=== PATIENT | female | born 2005 | race Caucasian/White ===

== ENCOUNTER 2023-05-03 17:31 | Emergency (ER) | payer SELFPAY ==
--- NOTE | 2023-05-03 17:49 | PC.NURSE ---
Pt stated she was leaving to be seen by her friends mom who is an ED RN at [id number].
== END 2023-05-03 18:16 | disposition left against medical advice (07) ==
LOC: ANHED 18:01
DX: Z53.21 Procedure and treatment not carried out due to patient leaving prior to being seen by health care provider (principal)
CPT/HCPCS: 99199

== ENCOUNTER 2023-09-02 19:03 | Emergency (ER) | payer OTHER, SELFPAY ==
[2023-09-02 19:07] VITALS: BP 114/75; PULSE 78; RESP 16; TEMP 36.4; O2SAT 100
[2023-09-02 19:09] VITALS: BP 114/75; PULSE 78; RESP 16; TEMP 36.4; O2SAT 100
--- NOTE | 2023-09-02 19:10 | ED.GENADULT ---
HPI - General Adult General Chief complaint: Upper Respiratory Infection Stated complaint: Sore Throat Source: patient, RN notes reviewed and old records reviewed Mode of arrival: ambulatory Limitations: no limitations History of Present Illness HPI narrative: 18-year-old female presents to [facility] with complaint sore throat, myalgia, headache, fatigue, chills this started 2 days ago. Patient taking ibuprofen for symptoms. Patient denies chest pain, shortness of breath, dizziness, weakness Related Data Home Medications Medication Instructions Recorded Confirmed venlafaxine 37.5 mg 37.5 mg PO DAILY 09/02/23 09/02/23 capsule,extended release 24 hr Allergies Allergy/AdvReac Type Severity Reaction Status Date / Time No Known Allergies Allergy Verified 09/02/23 19:13 Review of Systems Constitutional: Constitutional: Reports no additional constitutional complaints, Reports body ache(s), Denies chills, Reports fatigue, Denies fever(s) and Denies headache(s) Eyes: Eyes: Reports no additional eye complaints and Denies blurry vision ENT: Reports system reviewed and no additional complaints, except as documented, Denies vertigo, Denies dizziness, Denies ear discharge, Denies otalgia, Denies facial pain, Denies headache(s), Denies nasal congestion, Denies nasal discharge, Denies sinus pain, Denies sinus pressure and Reports sore throat Cardiovascular: Cardiovascular: Reports no additional cardiovascular complaints, Denies chest pain, Denies chest pain at rest, Denies rapid heart rate and Denies dyspnea Respiratory: Respiratory: Reports no additional respiratory complaints, Denies chest congestion, Denies cough, Denies pain on inspiration, Denies pain with cough and Denies dyspnea Gastrointestinal: Gastrointestinal: Denies abdominal pain, Denies diarrhea, Denies nausea and Denies vomiting Integumentary/Breasts: Skin/Breast: Denies rash Neurologic: Reports system reviewed and no additional complaints, except as documented, Denies vertigo, Denies dizziness and Denies headache(s) Endocrine: Endocrine: Denies fatigue PMFSH Comments At the time of my signature, I reviewed and agree with the nursing past medical, surgical, social, and family history. There is no relevant family history pertinent to the patient complaint. Exam Const: General: cooperative, healthy appearing, no acute distress and well nourished Nutritional Appearance: well nourished Orientation/consciousness: patient oriented x3 Limitations: no limitations HENMT: Head: normal to inspection and normocephalic Ears: external ears normal, TM's normal bilaterally, EAC's normal and mastoids normal Face/Nose/Sinus: normal facial exam Face and sinus: normal facial exam Mouth: Yes Normal oral and palatal mucosa present, Yes oropharynx normal and Yes moist mucous membranes Throat: posterior oropharynx normal, tonsils normal, uvula midline and no uvular edema Eyes: General: appearance normal, both eyes and all related structures Sclera: sclerae normal Pupils: Equal, round and reactive pupils present Resp: Effort & Inspection: normal respiratory effort, able to speak in complete sentences, no audible wheezes, no cough, no respiratory distress and no retractions Auscultation: clear to auscultation bilaterally, no crackles, no rales, no rhonchi and no wheezes Cardio: Rate: regular rate Rhythm: regular rhythm Skin: General skin exam: normal color and no rashes or lesions noted Neuro: General: patient oriented x3 Cranial nerves: Yes Equal, round and reactive pupils present Psych: Appearance: grossly normal Mental Status: mental status grossly normal Speech and movement: Normal speech and movement present Affect: normal affect Course Course Emergency Course: Patient is aware of diagnosis, understands and agrees to treatment plan.? Anticipatory guidance given.? Patient agrees to follow-up as directed and is aware of reasons to seek care at the emergency departm
== END 2023-09-02 19:24 | disposition home or self-care (01) ==
PROVIDERS: Emergency Provider Registered Nurse
DX: B34.9 Viral infection, unspecified (principal); Z20.822 Contact with and (suspected) exposure to COVID-19
CPT/HCPCS: 87081; 87426; 87804; 87880; 99213; G0463

== ENCOUNTER 2023-11-10 13:12 | Emergency (ER) | payer OTHER, SELFPAY ==
[2023-11-10 13:23] VITALS: BP 114/76; PULSE 82; RESP 16; TEMP 36.6; O2SAT 100
--- NOTE | 2023-11-10 13:33 | ED.GENADULT ---
HPI - General Adult General Chief complaint: Urogenital-Female Stated complaint: Yeast Infection Time Seen by Provider: 11/10/23 13:33 Source: patient Mode of arrival: ambulatory Limitations: no limitations History of Present Illness HPI narrative: 18-year-old female patient presents to the [facility] with complaints of vaginal discharge and vaginal itching for the past 5 days. Patient states she has had yeast infections before is and symptoms feel very similar. Patient states she is sexually active with only 1 partner at this time denies any concerns for STDs. Patient states she does have an IUD last period was over 2 months ago but has been having some breakthrough bleeding. Denies fevers, body aches or chills. Denies using any [id number] medications for yeast infection symptoms. Related Data Home Medications Medication Instructions Recorded Confirmed venlafaxine 37.5 mg 37.5 mg PO DAILY 09/02/23 11/10/23 capsule,extended release 24 hr Allergies Allergy/AdvReac Type Severity Reaction Status Date / Time No Known Allergies Allergy Verified 11/10/23 13:37 Review of Systems Review of Systems: CONSTITUTIONAL: Denies fever, chills, or sweats. EYES: Denies visual changes, redness, or discharge. ENT: Denies rhinorrhea, congestion, sore throat, or otalgia. CARDIOVASCULAR: Denies chest pain, palpitations, or edema. RESPIRATORY: Denies cough or dyspnea. GASTROINTESTINAL: Denies abdominal pain, nausea, vomiting, or diarrhea. GENITOURINARY: Denies dysuria or hematuria. Positive vaginal discharge, itchiness x5 days SKIN: Denies rash or itching. MUSCULOSKELETAL: Denies back pain, joint pain, or myalgia. NEUROLOGIC: Denies headache, numbness, or weakness. PSYCHIATRIC: Denies anxiety or depression. PMFSH Comments At the time of my signature I agree with nursing past medical history, surgical, social, and family history. There is no relevant family history pertinent to the presenting complaint. Exam Narrative: GENERAL: Well-appearing, well-nourished, and in no acute distress. HEAD: Normocephalic, atraumatic. EYES: PERRLA and EOMI. ENT: Nares clear, no rhinorrhea or epistaxis. Mucous membranes moist. NECK: Supple. No lymphadenopathy CHEST: Clear to auscultation. No respiratory distress. HEART: Regular rate and rhythm. No murmur heard. Normal peripheral pulses. ABDOMEN: Soft, nontender, nondistended, normal active bowel sounds. : Normal external female genitalia. OS is closed. No adnexal fullness or TTP. No CVA tenderness to percussion. Patient has some yellowish thick discharge noted on vaginal exam. Samples were taken and sent for general culture and BV testing. EXTREMITIES: Normal range of motion. No edema. SKIN: Warm, dry, no rash. NEURO: No focal deficits. Alert and oriented x3. Course Course Level of Care: Express Care Visit Vital Signs Vital signs: Vital Signs Temperature 36.6 C 11/10/23 13:23 Pulse Rate 82 11/10/23 13:23 Respiratory Rate 16 11/10/23 13:23 Blood Pressure 114/76 11/10/23 13:23 Pulse Oximetry 100 11/10/23 13:23 Temperature 36.6 C 11/10/23 13:23 Pulse Rate 82 11/10/23 13:23 Respiratory Rate 16 11/10/23 13:23 Blood Pressure 114/76 11/10/23 13:23 Pulse Oximetry 100 11/10/23 13:23 Vital signs reviewed. Medical Decision Making MDM Narrative Medical decision making narrative: Patient denies wanting testing for STDs today. Patient will provide a urine specimen we will test her for and dip her urine. We will also do a pelvic exam to assess the vaginal discharge and sent off for testing most likely for BV. Patient verbalized understanding. Differential Diagnosis Differential Diagnosis: differential diagnosis: Gonorrhea, chlamydia, Trichomonas, bacterial vaginosis, herpes, HIV, yeast infection, urinary tract infection. Vital Signs Vital Signs: Vital Signs Temperature 36.6 C 11/10/23 13:23 Pulse Rate 82
[2023-11-13 00:53] LABS: Bacterial Vaginosis POSITIVE (NEGATIVE)
== END 2023-11-10 14:06 | disposition home or self-care (01) ==
PROVIDERS: Emergency Provider Nurse Practitioner Family
DX: B37.31 Acute candidiasis of vulva and vagina (principal)
CPT/HCPCS: 81003; 81025; 81513; 87070; 99214; G0463

== ENCOUNTER 2024-04-23 13:06 | Emergency (ER) | payer OTHER, SELFPAY ==
[2024-04-23 13:28] VITALS: BP 115/75; PULSE 68; RESP 16; TEMP 36.2; O2SAT 98
--- NOTE | 2024-04-23 13:47 | ED.FEMALEGU ---
HPI - Female Genitourinary General Chief complaint: Urogenital-Female Stated complaint: std testing Time Seen by Provider: 04/23/24 13:48 Source: patient, RN notes reviewed and old records reviewed Mode of arrival: ambulatory Limitations: no limitations History of Present Illness HPI Narrative: 18-year-old female presents to the [facility] requesting STD testing. States that she just got a text message stating that a person she was with approximately 6 weeks ago recently tested positive for chlamydia and that everyone they had contact with these to be tested Patient's last menstrual period 3 months ago Patient denies any symptoms. No abdominal pain, vaginal discharge, itching or irritation Related Data Home Medications Medication Instructions Recorded Confirmed venlafaxine 37.5 mg 37.5 mg PO DAILY 09/02/23 04/23/24 capsule,extended release 24 hr Allergies Allergy/AdvReac Type Severity Reaction Status Date / Time No Known Allergies Allergy Verified 04/23/24 13:40 Review of Systems Review of Systems: All systems reviewed & are unremarkable except as noted in HPI and below Constitutional: Constitutional: Reports no additional constitutional complaints Eyes: Eyes: Reports no additional eye complaints ENT: Reports system reviewed and no additional complaints, except as documented Cardiovascular: Cardiovascular: Reports no additional cardiovascular complaints, Denies chest pain and Denies dyspnea Respiratory: Respiratory: Reports no additional respiratory complaints, Denies chest congestion, Denies cough and Denies dyspnea Gastrointestinal: Gastrointestinal: Reports no additional gastrointestinal complaints, Denies abdominal pain, Denies nausea and Denies vomiting Musculoskeletal: Musculoskeletal: Reports no additional musculoskeletal complaints Integumentary/Breasts: Skin/Breast: Reports system reviewed and no additional complaints, except as docu Neurologic: Reports system reviewed and no additional complaints, except as documented Psychiatric: Psychiatric: Reports no additional psychiatric complaints Allergic/Immunologic: Allergic/Immunologic: Reports no additional allergic/immunologic complaints PMFSH Comments At the time of my signature, I reviewed and agree with the nursing past medical, surgical, social, and family history. There is no relevant family history pertinent to the patient complaint. Exam Const: General: cooperative, healthy appearing, comfortable, no acute distress, well developed, alert and well nourished Nutritional Appearance: well nourished Orientation/consciousness: patient oriented x3 Limitations: no limitations HENMT: Head: normal to inspection Ears: hearing grossly normal bilaterally and external ears normal Face/Nose/Sinus: Normal external nose present, normal facial exam and face symmetric Face and sinus: normal facial exam and face symmetric Eyes: General: appearance normal, both eyes and all related structures Alignment and Position: alignment normal Periorbital: periorbital findings normal Neck: Neck: normal visual inspection, full ROM, no lymphadenopathy and no meningeal signs Chest: Chest palpation & inspection: normal inspection of the chest Resp: Effort & Inspection: normal respiratory effort and able to speak in complete sentences Cardio: Rate: regular rate : Other: Requesting urine test, declined pelvic will follow-up with health plan specialist if needed Skin: General skin exam: normal color and no rashes or lesions noted Lesions: no lesions Rashes: no rashes Trauma: no lacerations or abrasions Wounds: no wounds Neuro: General: patient oriented x3, gait normal, tone normal, moves all extremities and no meningeal signs Cognition (Neuro): normal cognition Speech: normal speech Gait exam (Neuro): Normal gait present Extrem: General: normal to inspection, full ROM, capillary refill normal and normal gait Psych: Appearance: grossly normal and well kempt Mental Sta
[2024-04-23 15:58] LABS: BEDSIDEPREGUCG Negative (Negative)
[2024-04-23 17:49] LABS: Trichomonas Vag PCR NOT DETECTED (NOT DETECTE)
[2024-04-23 18:15] LABS: Chlamydia trachomatis NOT DETECTED (NOT DETECTE); Neisseria gonorrhoeae PCR NOT DETECTED (NOT DETECTE)
== END 2024-04-23 14:01 | disposition home or self-care (01) ==
PROVIDERS: Emergency Provider Nurse Practitioner
DX: Z20.2 Contact with and (suspected) exposure to infections with a predominantly sexual mode of transmission (principal)
CPT/HCPCS: 81025; 87491; 87591; 87661; 99212; 99213; G0463

== ENCOUNTER 2024-08-13 11:25 | Emergency (ER) | payer OTHER, SELFPAY ==
--- NOTE | 2024-08-13 11:39 | ED.URI ---
HPI - URI/Sore Throat General Chief Complaint: Upper Respiratory Infection Stated Complaint: SORE THROAT Time Seen by Provider: 08/13/24 11:55 Source: patient Mode of arrival: ambulatory Limitations: no limitations History of Present Illness HPI Narrative: Elham is a 19-year-old female patient presenting to the clinic today with complaints of a sore throat, runny nose, cough, and congestion x2 days. She denies any known fever, chills, or body aches. No chest pain or shortness of breath MD elicited complaint: cough, sore throat and nasal congestion Related Data Home Medications ?Medication ?Instructions ?Recorded ?Confirmed ?Last Taken ?Type venlafaxine 37.5 mg 37.5 mg PO DAILY 09/02/23 04/23/24 Unknown History capsule,extended release 24 hr norgestimate 0.25 mg-ethinyl tablet 08/13/24 Unknown History estradiol 35 mcg tablet (Estarylla) Allergies Allergy/AdvReac Type Severity Reaction Status Date / Time No Known Allergies Allergy Verified 08/13/24 11:54 Review of Systems Review of Systems: Pertinent positives per HPI. Patient denies any fever, chills, rash, headache, visual changes, dizziness, shortness of breath, chest pain, palpitations, nausea, vomiting, diarrhea, constipation, abdominal pain, or any urinary issues. PMFSH Comments At the time of my signature, I reviewed and agree with the nursing past medical, surgical, social, and family history. There is no relevant family history pertinent to the patient complaint. Exam Narrative: General: Well-developed, well nourished, in no apparent distress Head: Normocephalic, atraumatic Eyes: Pupils equally round and reactive to light bilaterally, EOM intact, sclera and conjunctive clear, no discharge, lids normal Ears: TMs intact and congested, ear canals clear, no drainage, grossly hearing normal. Nose: Nares patent, clear nasal discharge, no inflammation, no sinus tenderness. Mouth: Oral pharynx red without lesions or masses, good dentition, MMM. Postnasal drip Neck: Supple, trachea midline, no enlargement of anterior or posterior cervical nodes, no thyroid masses or goiter palpable. Cardio: Regular rate and rhythm, s1 and s2 normal, no murmur appreciated. Resp: Clear to auscultation bilaterally, no rhonchi, rales, wheezing or rubs Course Course Emergency Course: Portions of this record may have been created with voice recognition software. Level of Care: Express Care Visit Vital Signs Vital signs: Vital Signs Temperature 37.1 C 08/13/24 11:46 Pulse Rate 115 H 08/13/24 11:46 Respiratory Rate 16 08/13/24 11:46 Blood Pressure 116/65 08/13/24 11:46 Pulse Oximetry 100 08/13/24 11:46 Temperature 37.1 C 08/13/24 11:46 Pulse Rate 115 H 08/13/24 11:46 Respiratory Rate 16 08/13/24 11:46 Blood Pressure 116/65 08/13/24 11:46 Pulse Oximetry 100 08/13/24 11:46 Vital signs reviewed MDM - URI/Sore Throat MDM Narrative Medical decision making narrative: At the time of visit patient is resting comfortably on the exam table. Patient appears to be nontoxic. Labs: COVID, influenza, and strep test were performed. COVID and strep test were negative. We will send strep for culture. Influenza test was positive for influenza A. Plan: Patient is positive for influenza A. Tamiflu prescription was sent to the pharmacy. Risk and benefits of this medication was reviewed and patient would liked to have this medication. Supportive measures were discussed with the patient and they voiced understanding discharge instructions and agrees to treatment plan. Return precautions reviewed Differential Diagnosis Differential diagnosis: Likely upper respiratory infection, otitis media, sinusitis, viral infection, bronchitis, influenza, pharyngitis and other (COVID) Lab Data Labs: Lab Results 08/13/24 Range/Units 11:39 POC Influenza A Ag Positive (Negative) POC Influenza B Ag Negative (Negative) POC SARS CoV-2 Ag Negative (Negative) POC Grp A Strep Screen Negative (Negative) Discharge Plan Discharge Clinical Impression: Influenza A Patient Disposition: Home, Self-Care Condition: Stable Instructions: Antibiotic Form, Influenza (ED) Additional Instructions: COVID and strep test was negative in the clinic today. We will send strep for culture. Influenza test was positive for influenza A Take prescription medications only as prescribed-Tamiflu Increase fluids and stay well hydrated Tylenol/motrin for pain/fever Flonase and OTC antihistamines as directed Vicks vapor rub to open sinuses Sinus rinses for congestion Cepacol spray, cough drops, throat lozenges, warm tea with honey/lemon, gargle salt water to soothe throat BRAT diet for diarrhea Clear liquids x 24 hours then advance as tolerated for nausea/vomiting Go to the ED if you develop a worsening in your condition- high fever not controlled by Tylenol or Motrin, dehydration, weakness, lethargy, shortness of breath, or chest pain. Follow up with your PCP in 3-5 days if symptoms persist. Patient Language: Hebrew Prescriptions: New oseltamivir [Tamiflu] 75 mg capsule 75 mg PO Q12H 5 Days Qty: 10 0RF No Action norgestimate-ethinyl estradiol [Estarylla] 0.25-35 mg-mcg tablet venlafaxine 37.5 mg capsule,extended release 24hr 37.5 mg PO DAILY Follow-up/Referrals: Deniz,Nahun [Other] Stand Alone Forms: Work/School Release IP Time of Disposition: 12:03 Quality NIHSS Nursing Documentation ED NIHSS nursing documentation: reviewed/agree
[2024-08-13 11:46] VITALS: BP 116/65; PULSE 115; RESP 16; TEMP 37.1; O2SAT 100
[2024-08-13 12:01] LABS: EDCOVIDSCREEN Negative (Negative); EDINFLUASCREEN Positive (Negative); EDINFLUBSCREEN Negative (Negative); EDSTREPNEGPOS1 Negative (Negative)
== END 2024-08-13 12:13 | disposition home or self-care (01) ==
PROVIDERS: Emergency Provider Nurse Practitioner Family
DX: J10.1 Influenza due to other identified influenza virus with other respiratory manifestations (principal); Z20.822 Contact with and (suspected) exposure to COVID-19
CPT/HCPCS: 87081; 87426; 87804; 87880; 99213; G0463